=== PATIENT | male | born 1955 | race Hispanic/Latino ===

== ENCOUNTER 2018-10-14 17:52 | Inpatient (IN) | payer OTHER ==
[~2018-10-14] VITALS: Ht 162.6 cm; Wt 84.8 kg
[2018-10-14] MEDS ORDERED: DIATRIZOATE MEGL/DIATRIZOA SOD 30 ML BTL PO ONE (18:28)
[2018-10-14 18:47] LABS: BASOPHILS % 0.3 % (0.0-1.0); EOSINOPHILS # (AUTO) 0.1 (0.0-0.4); HEMATOCRIT 40.4 % (38.2-49.6); HEMOGLOBIN 13.7 g/dL (14.0-18.0); LYMPHOCYTES # (AUTO) 1.8 (1.0-3.2); MEAN CORPUSCULAR HGB CONC 33.9 g/dL (31-35); MEAN CORPUSCULAR VOLUME 85.6 fL (81-99); MONOCYTES # (AUTO) 0.9 (0.2-0.8); MONOCYTES % 7.5 % (4.4-11.3); NEUTROPHILS # (AUTO) 9.2 (2.1-6.9); NEUTROPHILS % 75.8 % (38.7-80.0); PLATELET COUNT 376 x10e3/uL (140-360); RED BLOOD COUNT 4.72 x10e6/uL (4.3-5.7); RED CELL DISTRIBUTION WIDTH 12.8 % (11.7-14.4)
[2018-10-14 19:10] LABS: ALBUMIN 3.2 g/dL (3.5-5.0); ALBUMIN/GLOBULIN RATIO 0.6 (0.8-2.0); ANION GAP 16.5 mmol/L (8-16); CALCIUM 9.5 mg/dL (8.4-10.2); CREATININE, SERUM 1.32 mg/dL (0.72-1.25); POTASSIUM 3.5 mmol/L (3.5-5.1)
[2018-10-14] MEDS ORDERED: SODIUM CHLORIDE 0.9% 500ML 500 ML IV ONE (19:30)
--- NOTE | 2018-10-14 21:49 | Diagnostic Imaging Report ---
EXAM: CT Abdomen and Pelvis WITH contrast INDICATION: ABD PAIN NO VOIDING/CONSTIPATION; history of fistula and abdominal surgery COMPARISON: None. TECHNIQUE: Abdomen and pelvis were scanned utilizing a multidetector helical scanner from the lung base to the pubic symphysis after administration of IV contrast. Coronal and sagittal reformations were obtained. Routine protocol was performed. Scan was performed when during portal venous phase. IV CONTRAST: 100 mL of Isovue 370 ORAL CONTRAST: Gastroview COMPLICATIONS: None RADIATION DOSE: Total DLP: 603 mGy*cm Estimated effective dose: (DLP x 0.015 x size factor) mSv CTDIvol has been reviewed. It is below the limits set by the Radiation Protocol Committee (RPC). Dose modulation, iterative reconstruction, and/or weight based adjustment of the mA/kV was utilized to reduce the radiation dose to as low as reasonably achievable. FINDINGS: LINES and TUBES: None. LOWER THORAX: Ground glass opacity in the basal medial segment of the right lower lobe, and partially visualized graft less opacity in the posterior aspect of the lingula. HEPATOBILIARY: A few subcentimeter hypodensities in the left hepatic lobe. No focal hepatic lesions. No biliary ductal dilation. GALLBLADDER: No radio-opaque stones or sludge. No wall thickening. SPLEEN: No splenomegaly. PANCREAS: No focal masses or ductal dilatation. ADRENALS: No adrenal nodules KIDNEYS/URETERS: Kidneys enhance symmetrically. No hydronephrosis. There are scattered too small to characterize hypodensites, likely benign. No stones. GI TRACT: A 7.1 x 6.3 x 7.5 cm (SI x AP X ML) heterogeneous mixed cystic and solid mass in the lower rectum below the level of the peritoneal reflection near the superior margin of the anus. Along the superior portion of this lesion there are a few cysts or loculations which enhance peripherally, largest on the left measures 4.2 cm, largest on the right measures 3.5 cm. Moderate colonic stool burden Appendix is normal. PELVIC ORGANS/BLADDER: Unremarkable. LYMPH NODES: Slightly prominent bilateral pelvic sidewall lymph nodes measure less than 1 cm.. VESSELS: Unremarkable. PERITONEUM / RETROPERITONEUM: A 1.7 cm dense irregular calcification in the left mid abdominal mesentery without adjacent mesenteric fat stranding or evidence of mesenteric retraction or surrounding adenopathy. BONES: Unremarkable. SOFT TISSUES: Unremarkable. IMPRESSION: 1. A 7.5 cm lower rectal mass highly suspicious for malignancy. A few cystic lesions/loculations along the superior aspect are likely cystic malignant components, although superimposed infected loculation is possible. No adenopathy or gross evidence of perforation. This mass partially obstructs the distal rectal lumen and there is moderate colonic stool burden. 2. Right lower lobe and lingular pneumonia. 3. A few subcentimeter hypodensities in the left hepatic lobe are likely benign however given the rectal mass, metastasis are an unlikely consideration. 4. A 1.7 cm dense irregular left mid mesenteric calcification is likely sequela of prior infection/trauma, although given the rectal mass, a mesenteric metastatic deposit is a less likely consideration. Signed by: Patrice Colon DO on 10/14/2018 9:46 PM
[2018-10-14] MEDS ORDERED: SODIUM CHLORIDE 0.9% 50ML 50 ML ONE (22:06)
[2018-10-14] MEDS ORDERED: IOPAMIDOL 370 MG/ML 200 ML INFUS..BTL INJ ONE (22:07)
[2018-10-14 22:26] LABS: BILIRUBIN,URINE NEGATIVE (NEGATIVE); CLARITY,URINE CLEAR (CLEAR); COLOR,URINE YELLOW (YELLOW); KETONES,URINE NEGATIVE (NEGATIVE); LEUKOCYTE ESTERASE ,URINE NEGATIVE (NEGATIVE); NITRITE,URINE NEGATIVE (NEGATIVE); PROTEIN,URINE DIPSTICK NEGATIVE (NEGATIVE); URINE UROBILINOGEN 2 mg/dL (0.2 - 1)
[2018-10-14 22:47] LABS: BACTERIA,URINE FEW /HPF; EPITHELIAL CELLS,URINE MANY /LPF; WBC,URINE (MAN) 0-5 /HPF (0-5)
[2018-10-15] VITALS (11 sets, daily range): BP systolic 131–167; BP diastolic 69–88
[2018-10-15] MEDS ORDERED: no homemeds (00:16)
[2018-10-15] MEDS ORDERED: AZITHROMYCIN 500MG/NS 250 ML 250 ML IV SCH (00:45)
--- OUTSIDE RECORDS SUMMARY | 2018-10-15 00:49 | XMS REPORT ---
Author Author [facility] Address Unknown Phone Unavailable Care Team Providers Care Assistant Credit Manager Name Role Phone YASHIRA NEWSOME Unavailable Unavailable Problems This patient has no known problems. Allergies, Adverse Reactions, Alerts This patient has no known allergies or adverse reactions. Medications This patient has no known medications. Results Test Description Test Time Test Comments Text Results Atomic Results Result Comments CT ABDOMEN/PELVIS W 2018-10-14 21:27:[address] [address] Patient Name: KEYUR GHOSH MR #: [id number] : 1955 Age/Sex: 63/M Req #: [id number] Adm Physician: Ordered by: MERCEDEZ CASTAÑEDA, YASHIRA CASTAÑEDA Report #: [id number] Location: ER Room/Bed: Procedure: [id number] CT/CT ABDOMEN/PELVIS W Exam Date: 10/14/18 Exam Time: 2037 REPORT STATUS: Signed EXAM: CT Abdomen and Pelvis WITH contrast INDICAT ION: ABD PAIN NO VOIDING/CONSTIPATION; history of fistula and abdominal surgery COMPARISON: None. TECHNIQUE: Abdomen and pelvis were scanned utilizing a multidetector helical scanner from the lung base to the pubic symphysis after administration of IV contrast. Coronal and sagittal reformations were obtained. Routine protocol was performed. Scan was performed when during portal venous phase. IV CONTRAST: 100 mL of Isovue 370 ORAL CONTRAST: Gastroview COMPLICATIONS: None RADIATION DOSE: Total DLP: 603 mGy*cm Estimated effective dose: ( DLP x 0.015 x size factor) mSv CTDIvol has been reviewed. It is below the limits set by the Radiation Protocol Committee (RPC). Dose modulation, iterative reconstruction, and/or weight based adjustment of the mA/kV was utilized to reduce the radiation dose to as low as reasonably achievable. FINDINGS: LINES and TUBES: None. LOWER THORAX: Ground glass opacity in the basal medial segment of the right lower lobe, and partially visualized graft less opacity in the posterior aspect of the lingula. HEPATOBILIARY: A few subcentimeter hypodensities in the left hepatic lobe. No focal hepatic lesions. No biliary ductal dilation. GALLBLADDER: No radio-opaque stones or sludge. No wall thickening. SPLEEN: No splenomegaly. PANCREAS: No focal masses or ductal dilatation. ADRENALS: No adrenal nodules KIDNEYS/URETERS: Kidneys enhance symmetrically. No hydronephrosis. There are scattered too small to characterize hypodensites, likely benign. No stones. GI TRACT: A 7.1 x 6.3 x 7.5 cm (SI x AP X ML) heterogeneous mixed cystic and solid mass in the lower rectum below the level of the peritoneal reflection near the superior margin of the anus. Along the superior portion of this lesion there are a few cysts or loculations which enhance peripherally, largest on the left measures 4.2 cm, largest on the right measures 3.5 cm. Moderate colonic stool burden Appendix is normal. PELVIC ORGANS/BLADDER: Unremarkable. LYMPH NODES: Slightly prominent bilateral pelvic sidewall lymph nodes measure less than 1 cm.. VESSELS: Unremarkable. PERITONEUM / RETROPERITONEUM: A 1.7 cm dense irregular calcification in the left mid abdominal mesentery without adjacent mesenteric fat stranding or evidence of mesenteric retraction or surrounding adenopathy. BONES: Unremarkable. SOFT TISSUES: Unremarkable. IMPRESSION: 1. A 7.5 cm lower rectal mass highly suspicious for malignancy. A few cystic lesions/loculations along the superior aspect are likely cystic malignant components, although superimposed infected loculation is possible. No adenopathy or gross evidence of pe rforation. This mass partially obstructs the distal rectal lumen and there is moderate colonic stool burden. 2. Right lower lobe and lingular pneumonia. 3. A few subcentimeter hypodensities in the left hepatic lobe are likely benign however given the rectal mass, metastasis are an unlikely consideration. 4. A 1.7 cm dense irregular left mid mesenteric calcification is likely sequela of prior infection/trauma, although given the rectal mass, a mesenteric metastatic deposit is a less likely consideration. Signed by: Patrice Colon DO on 10/14/2018 9:46 PM Dictated By: PATRICE COLON DO 46 Transcribed By: SURI on 10/14/182145 COPY TO: YASHIRA NEWSOME
[2018-10-15] MEDS: CEFTRIAXONE SOD 1 GM/NS 50 ML 50 ML IV SCH (00:57)
--- NOTE | 2018-10-15 01:08 | NUR ---
PT ARRIVED ON THE UNIT VIA STRETCHER AT 0108. PT IS A&OX3. RESPIRATION IS EVEN AND UNLABORED, NO DISTRESS NOTED. PT AND HIS ORIENTED TO THE ROOM, BED IN THE LOWEST POSITION, LOCKED, AND CALL LIGHT WITHIN REACH. ADMISSION AND HEAD TO TOE ASSESSMENT COMPLETE. WILL CONTINUE TO MONITOR.
--- NOTE | 2018-10-15 06:56 | NUR ---
RECEIVED PATIENT RESTING IN BED. NO ACUTE DISTRESS NOTED. FAMILY AT BEDSIDE. CALL LIGHT WITHIN REACH. BED IN THE LOWEST POSITION.
--- NOTE | 2018-10-15 10:55 | NUR ---
CALLED DR. SAENZ TO NOTIFY HIM THAT PATIENT IS HAVING TEMPERATURE OF 101.3, NO ANSWER, LVM TO CALL BACK FOR ORDERS.
[2018-10-15] MEDS ORDERED: POLYETHYLENE GLYCOL 3350 17 GM PACK PO PRN (11:00)
[2018-10-15] MEDS ORDERED: ONDANSETRON HCL INJ 2MG/ML 2ML 2 MG/ML VIAL IV PRN (11:00)
[2018-10-15] MEDS: HYDRALAZINE HCL 20 MG/ML VIAL IV PRN (11:20)
[2018-10-15] MEDS: ACETAMINOPHEN 325 MG TAB PO PRN (11:20)
[2018-10-15] MEDS: ALBUTEROL/IPRATROPIUM 3 ML NEB NEB SCH ×4 (11:24→23:40)
--- NOTE | 2018-10-15 11:36 | NUR ---
Nutrition Screen Note RD Recommendation for Physician: Continue diet as ordered Plan of Care: RD following, monitoring for tolerance and adequacy Nutrition reason for involvement: Nutrition Risk Trigger - MST Primary Diagnose(s):pneumonia, renal mass PMH: No H&P available at time of visit Ht: 64in Wt:187lb BMI:32.1 kg/m2 IBW:130lb RD Assessment: (10/15/2018) Chart reviewed. Labs and meds reviewed. Initial encounter with patient. Pt was eating well GENERAL ACTIVITIES THERAPIST. Pt denies any difficulty chewing or swallowing. No N,V,D. Pt can feed himself. No wt changes Current Diet:Cardiac Malnutrition Evaluation 10/15/18() The patient does not meet criteria for a specified degree of malnutrition at this time. Will re-evaluate at follow-up as appropriate. Diet Education Needs Assessment: Diet education not indicated. Nutrition Care Level: low Signed: Davidson Moreno RD, LD, [facility]
--- NOTE | 2018-10-15 13:36 | NUR ---
GAVE PACKET OF INFORMATION WITH COMMUNITY RESOURCES FOR ASSISTANCE WITH LOW TO NO INCOME TO PATIENT. RESOURCES THAT PATIENT MAY BE ABLE TO FOLLOW UP UPON DISCHARGE. PT EDUCATED ON EACH RESOURCE AND UNDERSTANDING HOW TO FOLLOW UP TO SEE IF QUALIFIED FOR EACH RESOURCE.
[2018-10-15] MEDS: GUAIFENESIN 600MG/DEXTROMETHORPHAN 30MG TABSR PO SCH (16:04)
[2018-10-15] MEDS: FAMOTIDINE 20 MG TAB PO SCH (16:04)
[2018-10-15] MEDS: DOCUSATE SODIUM 100 MG CAP PO SCH (16:04)
--- NOTE | 2018-10-15 19:11 | NUR ---
REPORT GIVEN TO ONCOMING NURSE, WALKING ROUNDS DONE. PATIENT IS RESTING IN BED. NO ACUTE DISTRESS NOTED. DENIES PAIN OR DISCOMFORT. CALL LIGHT WITHIN REACH. BED IN THE LOWEST POSITION.
--- NOTE | 2018-10-15 19:32 | NUR ---
PT IS RESTING IN BED WITH FAMILY AT BEDSIDE. RESPIRATION IS EVEN AND UNLABORED, NO DISTRESS NOTED. BED IN THE LOWEST POSITION, LOCKED, AND CALL LIGHT WITHIN REACH. WILL CONTINUE TO MONITOR.
--- NOTE | 2018-10-15 20:05 | Consultation ---
DATE OF CONSULTATION: Pulmonary Critical Care Consultation CHIEF COMPLAINT: Abdominal pain. HISTORY OF PRESENT ILLNESS: The patient is a 63-year-old man. He came from the [facility] after presenting with abdominal pain and rectal mass. Abdominal CT also showed possible basal infiltrate in the lung. The patient denies any cough. He is not having any phlegm production. He denies chest pain or fevers. PAST MEDICAL HISTORY: The patient has no prior history of respiratory problems. No cardiac problems. SOCIAL HISTORY: The patient is not an active smoker or drinker. ALLERGIES: NO KNOWN DRUG ALLERGIES. FAMILY HISTORY: Family history is noncontributory. REVIEW OF SYSTEMS: The patient is afebrile. There is no headache. He is not having any cough or difficulty breathing. He has no chest pain. He does have some abdominal pain. He also has some nausea, but no vomiting. PHYSICAL EXAMINATION: VITAL SIGNS: The patient is afebrile. The blood pressure is 158/76 and the T-max is 99.9. Saturation is 96%. HEENT: Shows no facial swelling or erythema. The oropharynx is normal. LYMPHATIC: Shows no submandibular, cervical, or supraclavicular adenopathy. CARDIAC: Reveals regular rate and rhythm with normal S1 and S2. There are no murmurs or rubs. LUNGS: Auscultation of lungs reveals clear breath sounds bilaterally. There is no wheezing. ABDOMEN: Distended. There is some mild lower abdominal tenderness. There is no rebound or guarding. EXTREMITIES: There is no leg edema or calf tenderness. LABORATORY DATA: The sodium is 139 and BUN to creatinine ratio is 15 to 1.32. Other electrolytes are within normal limits. White blood cell count is 12.2 and hemoglobin is 13.7, platelet count is 376. RADIOGRAPHIC DATA: CT scan of the abdomen and pelvis shows a 7.5 cm low rectal mass. There is also a right lower lobe and lingular infiltrate and possibly some metastases in the liver. IMPRESSION: 1. Rectal mass with some colonic obstruction. 2. Community-acquired pneumonia. 3. Acute kidney injury. 4. Hypertension. PLAN: 1. Continue current antibiotics. 2. Oxygen as needed. 3. GI consultation and surgical consultation for rectal mass. Stiven Anand MD [facility] /[id number]
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
[2018-10-15] MEDS ORDERED: SODIUM CHLORIDE 0.9% 250ML 250 ML ONE (23:55)
[2018-10-16] VITALS (9 sets, daily range): BP systolic 133–177; BP diastolic 73–88
[2018-10-16] MEDS: CEFTRIAXONE SOD 1 GM/NS 50 ML 50 ML IV SCH ×2 (00:01→23:39)
[2018-10-16] MEDS: ACETAMINOPHEN 325 MG TAB PO PRN (00:01)
[2018-10-16] MEDS: ALBUTEROL/IPRATROPIUM 3 ML NEB NEB SCH ×6 (03:00→23:15)
[2018-10-16 04:55] LABS: BASOPHILS % 0.4 % (0.0-1.0); EOSINOPHILS # (AUTO) 0.1 (0.0-0.4); EOSINOPHILS % 1.4 % (0.0-6.0); HEMATOCRIT 36.4 % (38.2-49.6); HEMOGLOBIN 12.3 g/dL (14.0-18.0); LYMPHOCYTES # (AUTO) 2.9 (1.0-3.2); LYMPHOCYTES % 29.4 % (18.0-39.1); MEAN CORPUSCULAR HEMOGLOBIN 28.9 pg (28-32); MEAN CORPUSCULAR HGB CONC 33.8 g/dL (31-35); MEAN CORPUSCULAR VOLUME 85.6 fL (81-99); MONOCYTES % 9.9 % (4.4-11.3); NEUTROPHILS # (AUTO) 5.8 (2.1-6.9); NEUTROPHILS % 58.5 % (38.7-80.0); PLATELET COUNT 352 x10e3/uL (140-360); RED BLOOD COUNT 4.25 x10e6/uL (4.3-5.7); RED CELL DISTRIBUTION WIDTH 12.9 % (11.7-14.4)
[2018-10-16 05:02] LABS: ALANINE AMINOTRANSFERASE 15 IU/L (0-55); ALBUMIN 2.8 g/dL (3.5-5.0); ALBUMIN/GLOBULIN RATIO 0.6 (0.8-2.0); ALKALINE PHOSPHATASE 87 IU/L (40-150); ANION GAP 14.3 mmol/L (8-16); BLOOD UREA NITROGEN 9 mg/dL (7-26); BUN/CREATININE RATIO 10 (6-25); CALCIUM 9.1 mg/dL (8.4-10.2); CARBON DIOXIDE 24 mmol/L (22-29); CHLORIDE 103 mmol/L (98-107); EST GLOMERULAR FILTRATION RATE > 60 ML/MIN (60-); GLUCOSE 101 mg/dL (74-118); PHOSPHORUS 3.5 MG/DL (2.3-4.7); POTASSIUM 3.3 mmol/L (3.5-5.1); SODIUM 138 mmol/L (136-145)
--- NOTE | 2018-10-16 06:52 | NUR ---
RECEIVED PATIENT RESTING IN BED. NO S/S OF DISTRESS NOTED. PAIN AT A TOLERABLE LEVEL AT THIS TIME. CALL LIGHT WITHIN REACH. BED IN THE LOWEST POSITION.
[2018-10-16] MEDS: DOCUSATE SODIUM 100 MG CAP PO SCH ×2 (08:21→17:08)
[2018-10-16] MEDS: FAMOTIDINE 20 MG TAB PO SCH ×2 (08:21→17:08)
[2018-10-16] MEDS: HYDRALAZINE HCL 20 MG/ML VIAL IV PRN (08:21)
[2018-10-16] MEDS: GUAIFENESIN 600MG/DEXTROMETHORPHAN 30MG TABSR PO SCH ×2 (08:21→17:08)
[2018-10-16] MEDS ORDERED: POTASSIUM CHLORIDE 20 MEQ TAB CR PO ONE (12:30)
[2018-10-16] MEDS: AMLODIPINE BESYLATE 10 MG TAB PO SCH (12:37)
--- NOTE | 2018-10-16 19:08 | NUR ---
REPORT GIVEN TO ONCOMING NURSE, WALKING ROUNDS DONE. PATIENT IS IN STABLE CONDITION. DENIES PAIN OR DISCOMFORT. FAMILY AT BEDSIDE. CALL LIGHT WITHIN REACH. BED IN THE LOWEST POSITION.
--- NOTE | 2018-10-16 19:21 | NUR ---
PT IS RESTING IN BED WITH AND KIDS AT BEDSIDE. RESPIRATION IS EVEN AND UNLABORED, NO DISTRESS NOTED. BED IN THE LOWEST POSITION, LOCKED, AND CALL LIGHT WITHIN REACH. WILL CONTINUE TO MONITOR.
[2018-10-17] VITALS (7 sets, daily range): BP systolic 124–156; BP diastolic 62–83
[2018-10-17] MEDS ORDERED: CITRATE OF MAGNESIA 300ML BOTTLE PO ONE ×3 (02:00→11:30)
--- NOTE | 2018-10-17 02:12 | NUR ---
PER DR LONG CITRATE OF MAGNESIA BOTTLE X2. ADMINISTER FIRST BOTTLE TO PT. WILL CONTINUE TO MONITOR.
[2018-10-17] MEDS: ALBUTEROL/IPRATROPIUM 3 ML NEB NEB SCH ×6 (03:00→23:20)
[2018-10-17] MEDS ORDERED: BISACODYL 5 MG TAB EC PO ONE ×4 (03:15→23:42)
--- NOTE | 2018-10-17 03:42 | NUR ---
PER DR Maddy LONG DULCOLAX 20MG PO NOW AND ANOTHER 20MG IN AN HOUR. WILL CONTINUE TO MONITOR.
[2018-10-17 03:59] LABS: BASOPHILS # (AUTO) 0.1 (0.0-0.1); BASOPHILS % 0.6 % (0.0-1.0); EOSINOPHILS # (AUTO) 0.4 (0.0-0.4); EOSINOPHILS % 3.6 % (0.0-6.0); HEMATOCRIT 39.1 % (38.2-49.6); HEMOGLOBIN 13.4 g/dL (14.0-18.0); LYMPHOCYTES # (AUTO) 2.5 (1.0-3.2); LYMPHOCYTES % 24.9 % (18.0-39.1); MEAN CORPUSCULAR HEMOGLOBIN 29.1 pg (28-32); MEAN CORPUSCULAR HGB CONC 34.3 g/dL (31-35); MEAN CORPUSCULAR VOLUME 84.8 fL (81-99); MONOCYTES # (AUTO) 0.8 (0.2-0.8); MONOCYTES % 8.4 % (4.4-11.3); NEUTROPHILS # (AUTO) 6.2 (2.1-6.9); PLATELET COUNT 419 x10e3/uL (140-360); RED BLOOD COUNT 4.61 x10e6/uL (4.3-5.7); RED CELL DISTRIBUTION WIDTH 12.7 % (11.7-14.4)
[2018-10-17 04:21] LABS: ANION GAP 15.4 mmol/L (8-16); BLOOD UREA NITROGEN 9 mg/dL (7-26); BUN/CREATININE RATIO 10 (6-25); CALCIUM 9.7 mg/dL (8.4-10.2); CARBON DIOXIDE 21 mmol/L (22-29); CHLORIDE 104 mmol/L (98-107); CREATININE, SERUM 0.87 mg/dL (0.72-1.25); EST GLOMERULAR FILTRATION RATE > 60 ML/MIN (60-); GLUCOSE 147 mg/dL (74-118); POTASSIUM 3.4 mmol/L (3.5-5.1); SODIUM 137 mmol/L (136-145)
--- NOTE | 2018-10-17 07:15 | NUR ---
The pt. is up and in the bathroom at bedside rounding. He reports continued stool in the bowel movements. The pt.'s potassium is low at 3.3 and the PA is here and ordered potassium replacement.
[2018-10-17] MEDS: FAMOTIDINE 20 MG TAB PO SCH ×2 (07:30→17:27)
[2018-10-17] MEDS ORDERED: KCL 20MEQ/.9 SOD CHL 1,000 ML IV ONE (08:00)
[2018-10-17] MEDS ORDERED: POTASSIUM CHLORIDE 20MEQ/100ML 100 ML IV ONE (08:00)
[2018-10-17] MEDS: DOCUSATE SODIUM 100 MG CAP PO SCH ×2 (09:31→17:27)
[2018-10-17] MEDS: GUAIFENESIN 600MG/DEXTROMETHORPHAN 30MG TABSR PO SCH ×2 (09:31→17:27)
[2018-10-17] MEDS: AMLODIPINE BESYLATE 10 MG TAB PO SCH (09:31)
--- NOTE | 2018-10-17 11:30 | NUR ---
Dr. Kim Ramsey called to give orders for magnesium citrate and n p o.
--- NOTE | 2018-10-17 15:08 | NUR ---
The is still having particulate matter from the bowel. The dr. will do colonoscopy im the morning. The pt. will have clear liquids until breakfast and then n p o.
--- NOTE | 2018-10-17 18:22 | NUR ---
The pt. has been consented for colonoscopy scheduled for 10/18/18.
--- NOTE | 2018-10-17 22:56 | NUR ---
received orders from sean johnson to give dulcolax 5mg po total of 20 mg now and 20mg every 30 minutes times three. orders carried out. patient received all pills and no stool noted. stool remain blackish liquid with some particles.
[2018-10-18] VITALS (8 sets, daily range): BP systolic 127–162; BP diastolic 70–87
[2018-10-18] MEDS ORDERED: BISACODYL 5 MG TAB EC PO ONE ×2 (00:15→05:42)
[2018-10-18] MEDS: CEFTRIAXONE SOD 1 GM/NS 50 ML 50 ML IV SCH (00:45)
--- NOTE | 2018-10-18 02:00 | NUR ---
dr. sean johnson present informed patient received all pills and no results from that, rounds made, iv infusing, encourage patient to increase his water intake per orders. will continue to monitor. call light remain in reach.
[2018-10-18] MEDS: ALBUTEROL/IPRATROPIUM 3 ML NEB NEB SCH ×6 (02:55→23:00)
[2018-10-18 03:56] LABS: BASOPHILS # (AUTO) 0.1 (0.0-0.1); BASOPHILS % 0.5 % (0.0-1.0); EOSINOPHILS # (AUTO) 0.3 (0.0-0.4); EOSINOPHILS % 2.7 % (0.0-6.0); HEMATOCRIT 38.8 % (38.2-49.6); HEMOGLOBIN 13.2 g/dL (14.0-18.0); LYMPHOCYTES # (AUTO) 2.3 (1.0-3.2); LYMPHOCYTES % 24.8 % (18.0-39.1); MEAN CORPUSCULAR HEMOGLOBIN 28.9 pg (28-32); MEAN CORPUSCULAR VOLUME 85.1 fL (81-99); MONOCYTES # (AUTO) 0.6 (0.2-0.8); MONOCYTES % 6.3 % (4.4-11.3); NEUTROPHILS # (AUTO) 6.1 (2.1-6.9); NEUTROPHILS % 65.1 % (38.7-80.0); PLATELET COUNT 455 x10e3/uL (140-360); RED BLOOD COUNT 4.56 x10e6/uL (4.3-5.7); RED CELL DISTRIBUTION WIDTH 12.9 % (11.7-14.4)
[2018-10-18 04:15] LABS: ANION GAP 14.4 mmol/L (8-16); BLOOD UREA NITROGEN 14 mg/dL (7-26); BUN/CREATININE RATIO 15 (6-25); CALCIUM 9.4 mg/dL (8.4-10.2); CARBON DIOXIDE 22 mmol/L (22-29); CHLORIDE 103 mmol/L (98-107); CREATININE, SERUM 0.95 mg/dL (0.72-1.25); EST GLOMERULAR FILTRATION RATE > 60 ML/MIN (60-); GLUCOSE 141 mg/dL (74-118); MAGNESIUM 2.4 MG/DL (1.3-2.1); POTASSIUM 3.4 mmol/L (3.5-5.1); SODIUM 136 mmol/L (136-145)
[2018-10-18] MEDS ORDERED: POTASSIUM CHLORIDE 20MEQ/100ML 100 ML IV ONE (04:45)
--- NOTE | 2018-10-18 07:00 | NUR ---
rounds done, patient continue resting in bed, iv infusing, will continue to monitor. call light in reach.
--- NOTE | 2018-10-18 07:10 | NUR ---
The pt. was received from the off-going nurse and reports that the last stool was clearer in color. He denies pin or discomfortat this time. Rachid Addendum: 10/18/18 at 0752 by Milka Hanley RN kamran lainez is in process.
[2018-10-18] MEDS: FAMOTIDINE 20 MG TAB PO SCH ×2 (08:13→16:06)
[2018-10-18] MEDS: GUAIFENESIN 600MG/DEXTROMETHORPHAN 30MG TABSR PO SCH ×2 (08:13→18:01)
[2018-10-18] MEDS: DOCUSATE SODIUM 100 MG CAP PO SCH ×2 (08:13→18:01)
[2018-10-18] MEDS: AMLODIPINE BESYLATE 10 MG TAB PO SCH (08:14)
[2018-10-18] MEDS ORDERED: GADOBENATE DIMEGLUMINE 1 ML IV ONE (12:52)
--- NOTE | 2018-10-18 12:56 | NUR ---
To OR for procedure via w/c in stable condition.
--- NOTE | 2018-10-18 15:39 | NUR ---
PT TO HAVE COLONOSCOPY AND BIOPSY CONTINUE CARE
--- NOTE | 2018-10-18 16:07 | NUR ---
The pt. returned to the room from surgery s/p colonoscopy. He is awake, alert but still somewhat unsteady. He was advised to use the urinal until he is less unsteady. The family is in attendance. The v.s are within normal limits (see graphic). The pt. is to maintain a clear liquid diet until further notice and the pt. is aware.
[2018-10-18] MEDS ORDERED: FENTANYL CITRATE/PF 100MCG/2 ML INJ ONE (18:20)
[2018-10-18] MEDS ORDERED: MIDAZOLAM HCL 2 MG/2 ML VIAL ONE (18:20)
[2018-10-18] MEDS ORDERED: PHENYLEPHRINE HCL 1% 10 MG/ML VIAL ONE (18:29)
[2018-10-18] MEDS ORDERED: LIDOCAINE HCL 2% LOCAL INJ 5 ML SDV VIAL INJ ONE (18:29)
[2018-10-18] MEDS ORDERED: PROPOFOL IV EMULSION 10 MG/ML 20 ML VIAL ONE (18:29)
--- NOTE | 2018-10-18 19:10 | NUR ---
Completed bedside rounds with morning nurse. Pt alert to name. Lying in bed HOB 45 degrees. denies pain at this time. Skin warm to touch. Call weir within reach. Will continue to monitor.
[2018-10-19 00:20] VITALS: BP 143/71
[2018-10-19] MEDS: CEFTRIAXONE SOD 1 GM/NS 50 ML 50 ML IV SCH (00:45)
[2018-10-19] MEDS: ALBUTEROL/IPRATROPIUM 3 ML NEB NEB SCH ×4 (02:50→19:11)
--- NOTE | 2018-10-19 03:53 | Operative Report ---
DATE OF PROCEDURE: 10/18/2018 SURGEON: Vinod Ramsey MD PROCEDURE: Colonoscopy with polypectomy and biopsies. INDICATIONS FOR COLONOSCOPY: Rectal mass on CT scan. MEDICATIONS: The patient was done under MAC. Please see anesthesiologist's note. PROCEDURE IN DETAIL: With the patient in left lateral decubitus position, flexible fiberoptic Olympus colonoscope was inserted into the rectum and advanced all the way to the cecum. Mucosa overlying the cecum appeared to be within normal limits. One polyp was snared from the ascending colon. Two polyps were snared from the transverse colon. Three polyps were snared from the descending colon and two were snared from the sigmoid colon. A large rectal mass was noted extending approximately 6 cm from just above the dentate line. Biopsies were obtained and sent for both permanent as well as frozen section. The frozen section was positive for adenocarcinoma. The scope was then subsequently withdrawn. The patient tolerated the procedure well. IMPRESSION: 1. Ascending colon polyp x1, snared. 2. Transverse colon polyps x2, removed per snare electrocautery. 3. Descending colon polyps x3, removed per snare electrocautery. 4. Sigmoid colon polyps x2, removed per snare electrocautery. 5. Rectal mass approximately semicircumferential extending from just above the dentate line approximately 7 cm proximal into the rectum. Biopsies for frozen section were positive for adenocarcinoma. PLAN: Follow up histology. We will discuss with Dr. Branch. I repeat followup histology. We will discuss with Dr. Branch, the patient's general surgeon. Vinod Ramsey MD [facility] [place] /[id number] cc: Giles Avila MD
[2018-10-19 06:35] LABS: BASOPHILS % 0.3 % (0.0-1.0); EOSINOPHILS # (AUTO) 0.3 (0.0-0.4); EOSINOPHILS % 3.1 % (0.0-6.0); HEMATOCRIT 36.5 % (38.2-49.6); HEMOGLOBIN 12.1 g/dL (14.0-18.0); LYMPHOCYTES # (AUTO) 2.1 (1.0-3.2); LYMPHOCYTES % 23.6 % (18.0-39.1); MEAN CORPUSCULAR HEMOGLOBIN 28.7 pg (28-32); MEAN CORPUSCULAR HGB CONC 33.2 g/dL (31-35); MEAN CORPUSCULAR VOLUME 86.5 fL (81-99); MONOCYTES # (AUTO) 0.5 (0.2-0.8); MONOCYTES % 5.7 % (4.4-11.3); NEUTROPHILS # (AUTO) 5.9 (2.1-6.9); NEUTROPHILS % 66.7 % (38.7-80.0); PLATELET COUNT 430 x10e3/uL (140-360); RED BLOOD COUNT 4.22 x10e6/uL (4.3-5.7); RED CELL DISTRIBUTION WIDTH 12.9 % (11.7-14.4)
[2018-10-19 06:42] LABS: ANION GAP 14.6 mmol/L (8-16); BLOOD UREA NITROGEN 11 mg/dL (7-26); BUN/CREATININE RATIO 15 (6-25); CALCIUM 8.9 mg/dL (8.4-10.2); CARBON DIOXIDE 23 mmol/L (22-29); CHLORIDE 105 mmol/L (98-107); CREATININE, SERUM 0.75 mg/dL (0.72-1.25); EST GLOMERULAR FILTRATION RATE > 60 ML/MIN (60-); GLUCOSE 85 mg/dL (74-118); POTASSIUM 3.6 mmol/L (3.5-5.1); SODIUM 139 mmol/L (136-145)
--- NOTE | 2018-10-19 07:40 | NUR ---
PATIENT IN BED RESTING WITH NO S/S OF DISTRESS. DRESSING INTACT TO ABDOMINAL WOUND WITH SOME REDNESS AROUND. BED IN LOWER POSITION, CALL LIGHT AT REACH.
[2018-10-19 07:59] VITALS: BP 142/70
[2018-10-19] MEDS: FAMOTIDINE 20 MG TAB PO SCH ×2 (08:00→16:30)
[2018-10-19] MEDS ORDERED: CITRATE OF MAGNESIA 300ML BOTTLE PO NR ×2 (09:00→12:30)
[2018-10-19] MEDS: GUAIFENESIN 600MG/DEXTROMETHORPHAN 30MG TABSR PO SCH ×2 (09:09→17:45)
[2018-10-19] MEDS: DOCUSATE SODIUM 100 MG CAP PO SCH ×2 (09:09→17:45)
[2018-10-19] MEDS: AMLODIPINE BESYLATE 10 MG TAB PO SCH (09:09)
[2018-10-19] MEDS: D5.45%NS/KCL 20MEQ 1,000 ML IV SCH ×2 (11:00→20:34)
--- NOTE | 2018-10-19 11:50 | NUR ---
PATIENT AMBULATED TO THE RESTROOM AND BACK TO BED. IV FLUID INFUSING ORDERED. CALL LIGHT AT REACH.
[2018-10-19 12:11] VITALS: BP 144/70
[2018-10-19 15:09] VITALS: BP 170/82
--- NOTE | 2018-10-19 16:32 | NUR ---
PATIENT OUT OF BED TO CHAIR TALKING TO FAMILY MEMBER VISITING, NO COMPLAIN VOICED. CALL LIGHT AT REACH.
--- NOTE | 2018-10-19 19:30 | NUR ---
Completed bedside nursing report with morning nurse. Pt alert and orient to name. Lying in bed HOB 45 degrees. Denies pain at this time. Call weir within reach. Will continue to monitor.
[2018-10-19 20:00] VITALS: BP 135/74
[2018-10-19 21:00] VITALS: BP 135/74
[2018-10-20] VITALS: BP 150/76
[2018-10-20] MEDS: CEFTRIAXONE SOD 1 GM/NS 50 ML 50 ML IV SCH (00:27)
[2018-10-20] MEDS: ALBUTEROL/IPRATROPIUM 3 ML NEB NEB SCH ×6 (00:41→19:15)
[2018-10-20 03:05] LABS: BASOPHILS % 0.4 % (0.0-1.0); EOSINOPHILS # (AUTO) 0.4 (0.0-0.4); EOSINOPHILS % 3.9 % (0.0-6.0); HEMATOCRIT 35.5 % (38.2-49.6); HEMOGLOBIN 12.1 g/dL (14.0-18.0); LYMPHOCYTES # (AUTO) 2.6 (1.0-3.2); LYMPHOCYTES % 29.3 % (18.0-39.1); MEAN CORPUSCULAR HGB CONC 34.1 g/dL (31-35); MEAN CORPUSCULAR VOLUME 85.1 fL (81-99); MONOCYTES # (AUTO) 0.6 (0.2-0.8); MONOCYTES % 6.7 % (4.4-11.3); NEUTROPHILS # (AUTO) 5.3 (2.1-6.9); NEUTROPHILS % 59.3 % (38.7-80.0); PLATELET COUNT 407 x10e3/uL (140-360); RED BLOOD COUNT 4.17 x10e6/uL (4.3-5.7); RED CELL DISTRIBUTION WIDTH 12.7 % (11.7-14.4)
[2018-10-20 03:18] LABS: ANION GAP 12.7 mmol/L (8-16); BLOOD UREA NITROGEN 5 mg/dL (7-26); BUN/CREATININE RATIO 7 (6-25); CALCIUM 8.8 mg/dL (8.4-10.2); CARBON DIOXIDE 24 mmol/L (22-29); CHLORIDE 107 mmol/L (98-107); CREATININE, SERUM 0.74 mg/dL (0.72-1.25); EST GLOMERULAR FILTRATION RATE > 60 ML/MIN (60-); GLUCOSE 117 mg/dL (74-118); POTASSIUM 3.7 mmol/L (3.5-5.1); SODIUM 140 mmol/L (136-145)
[2018-10-20 04:00] VITALS: BP 134/76
[2018-10-20] MEDS: D5.45%NS/KCL 20MEQ 1,000 ML IV SCH (07:14)
--- NOTE | 2018-10-20 07:26 | NUR ---
PATIENT IN BED WITH HEAD OF BED ELEVATED WATCHING TV, NO COMPLAIN VOICED. REMAINS NPO FOR A PROCEDURE. DRESSING TO MID ABDOMEN DRY AND INTACT. IV FLUID INFUSING ORDERED. BED IN LOWER POSITION, CALL LIGHT AT REACH.
[2018-10-20 07:30] VITALS: BP 148/79
[2018-10-20] MEDS: FAMOTIDINE 20 MG TAB PO SCH ×2 (07:30→17:25)
[2018-10-20 07:46] VITALS: BP 148/79
[2018-10-20] MEDS: DOCUSATE SODIUM 100 MG CAP PO SCH ×2 (09:00→17:25)
[2018-10-20] MEDS: AMLODIPINE BESYLATE 10 MG TAB PO SCH (09:00)
[2018-10-20] MEDS: GUAIFENESIN 600MG/DEXTROMETHORPHAN 30MG TABSR PO SCH ×2 (09:00→17:25)
--- NOTE | 2018-10-20 09:37 | Diagnostic Imaging Report ---
EXAMINATION: MRI of the pelvis with and without contrast. TECHNIQUE: Axial T1 and T2, sagittal T2 with and without fat-sat, coronal T1 MR images of the pelvis were performed from below the inferior poles of the kidneys to the lesser trochanters before and after the intravenous administration of 17 cc of gadolinium. Axial T1 and coronal T1 postcontrast images were performed. COMPARISON: CT abdomen and pelvis 10/14/2018 CLINICAL HISTORY: Rectal mass. FINDINGS: BLADDER: Bladder is unremarkable. No focal lesions or wall thickening. PROSTATE: Unremarkable. No focal lesions. GI TRACT: Approximately 6.2 x 3.4 x 3.2 cm crescentic shaped lobulated T1 hypointense, T2 hyperintense enhancing solid mass in the lower rectum below the level of the peritoneal reflection (series 4, image 29 and series 7, image 34), extending from the 5:00 to the 12:00 position. 2 peripherally enhancing T1 hypointense, T2 hyperintense cystic-appearing components are noted in the superior aspect of this lesion, measuring approximately 4.2 x 2.9 x 3.4 cm at approximately the 3:00 to 5:00 position on the left (series 4, image 24) and 6.2 x 3.6 x 4.4 cm in the 9:00 to 11:00 position on the left, image 23). The right-sided cystic lesion extends to the right mesorectal fascial border and abuts the right pelvic sidewall. Questionable extension of the lower portion of the tumor outside the mesorectal fascia at the 9:00 position (series 4, image 28), which is difficult to assess as this is not a dedicated rectal MRI protocol. The anterior border of the solid mass abuts the posterior aspect of the prostate, without definite evidence of invasion. Rest of the bowel shows no dilation or obstruction. No other focal lesions are identified. PERITONEUM/RETROPERITONEUM: No free fluid. LYMPH NODES: 0.4 cm no enlarged left mesorectal node (series 4, image 24). No enlarged mesorectal, pelvic or inguinal lymph nodes BONES: No abnormal bone marrow signal. SOFT TISSUES: Soft tissues are unremarkable. IMPRESSION: 1. Large lower rectal solid mass with cystic components consistent with rectal neoplasm likely adenocarcinoma. 2 peripherally enhancing cystic components likely represent cystic or less likely necrotic portions of the tumor. Associated abscesses are less likely considered. No adenopathy. 2. There is questionable extension of the lower portion of the tumor outside the mesorectal fascia at the 9:00 position, and the right-sided cystic component extends to the border of the right mesorectal fascia and abuts the pelvic sidewall, which suggests at least a T3 stage tumor, however, assessment is limited as this is not a dedicated rectal MRI protocol. Signed by: Dr. Krzysztof Valderrama M.D. on 10/20/2018 9:34 AM
[2018-10-20 11:11] VITALS: BP 152/79
--- NOTE | 2018-10-20 11:29 | NUR ---
MD IN TO TALK TO PATIENT ABOUT THE PROCEDURE, NO CONCERN VOICED. CONSENT SIGN, REMAINS NPO. IN BED WITH CALL LIGHT.
--- NOTE | 2018-10-20 13:15 | NUR ---
PATIENT OFF UNIT TO OR.
--- NOTE | 2018-10-20 15:10 | NUR ---
PATIENT BACK TO UNIT, SURGERY CANCELLED.
[2018-10-20 15:19] VITALS: BP 153/78
--- NOTE | 2018-10-20 15:23 | NUR ---
CASE MANAGEMENT CALLED BY DR REGAN STATING HE IS NOT DOING SURGERY ON THIS PT HAS DISCUSSED WITH PT AND PT AGREEABLE PLAN IS TO DC AND F/U AT [facility] OR MD [facility] FOR CHEMO/RADIATION FOLLOWED BY SURGERY APPLICATION CHEMIST HERE TO EXPLAIN PROCESS TO PT AND GIVE PACKET DR REGAN IS CALLING TO EXPLAIN TO DR SAENZ PLAN POSSIBLE DC THIS EVENING
--- NOTE | 2018-10-20 16:02 | NUR ---
SPOKE EXTENSIVELY WITH THE PATIENT AND FAMILY ABOUT THE IMPORTANCE OF GETTING THE RIGHT TEAM FROM BEGINNING TO CARE FOR A CANCER DX. THEY WANT TO DISCHARGE FROM HERE AND MAKE APPOINTMENT WITH [facility] FOR FOLLOW UP, GAVE OUTPATIENT CLINIC NUMBER AND WEBSITE PRINTOUT, ALSO SPOKE WITH THEM ABOUT A SECOND OPTION OF [facility] AND THE[facility] ONCOLOGY DEPARTMENT. SPOKE WITH FAMILY ABOUT THIS IS A BRAND NEW DIAGNOSIS AND IT IS NOT EMERGENT TO WHERE THEY ARE ABLE TO GO HOME AND DISCUSS A FAMILY AND MAKE THEIR DECISION ON WHERE THEY WANT TREATMENT. FAMILY AGAIN EMPHASIZED THEY WOULD RATHER NOT GET TREATMENT HERE AND GO TO [facility]. THEY WILL RETURN HOME AND DISCUSS FURTHER AND MAKE AN OUTPATIENT APPOINTMENT FOR FOLLOW UP FOR TREATMENT. ADVISED IF THEY HAVE ANY OTHER QUESTIONS TO CALL ME AND I WILL BE HAPPY TO ASSIST IN ANY WAY.
--- NOTE | 2018-10-20 20:01 | NUR ---
DR SAENZ'S PHYSICAL METALLURGIST SAW THE PATIENT, HE HAS A DISCHARGE ORDER. DISCHARGED INSTRUCTIONS WITH FOLLOW UP GIVEN, HE VERBALIZED UNDERSTANDING. HE WAS TOLD TO FOLLOW UP WITH [facility] AND EDDY DISCUSSED. IV REMOVED WITH TIP INTACT, WET TO DRY WOUND CARE PROVIDED TO THE ABDOMINAL WOUND WITH 4X4 AND GAUZE GIVEN TO THE PATIENT.
--- NOTE | 2018-10-20 20:04 | NUR ---
PATIENT IS DISCHARGED TO HOME, ALL PERSONAL ITEMS TAKEN WITH THE PATIENT. HE LEFT UNIT PER WHEELCHAIR TO THE FRONT LOBBY IN STABLE CONDITION.
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
== END 2018-10-20 20:05 | disposition home or self-care (01) | DRG 374 ==
LOC: ER 17:52 → ERHOLD 10-15 00:46 → MED/SURG3 10-15 01:13
PROVIDERS: ADMIT Internal Medicine; ATTEND Internal Medicine
PROC: 0DBM8ZX Excision of Descending Colon, Via Natural or Artificial Opening Endoscopic, Diagnostic (ICD-10-PCS; 2018-10-18)
PROC: 0DBK8ZX Excision of Ascending Colon, Via Natural or Artificial Opening Endoscopic, Diagnostic (ICD-10-PCS; principal; 2018-10-18 14:11)
PROC: 0DBL8ZX Excision of Transverse Colon, Via Natural or Artificial Opening Endoscopic, Diagnostic (ICD-10-PCS; 2018-10-18 14:11)
PROC: 0DBN8ZX Excision of Sigmoid Colon, Via Natural or Artificial Opening Endoscopic, Diagnostic (ICD-10-PCS; 2018-10-18 14:11)
PROC: 0DBP8ZX Excision of Rectum, Via Natural or Artificial Opening Endoscopic, Diagnostic (ICD-10-PCS; 2018-10-18 14:11)
DX: C19 Malignant neoplasm of rectosigmoid junction (principal); J18.9 Pneumonia, unspecified organism; N17.9 Acute kidney failure, unspecified; C78.7 Secondary malignant neoplasm of liver and intrahepatic bile duct; E87.6 Hypokalemia; I10 Essential (primary) hypertension
CPT/HCPCS: 36415; 45378; 45380; 45384; 45385; 72197; 74177; 80048; 80053; 81001; 82550; 82553; 83690; 83735; 83880; 84100; 84484; 85025; 87040; 88305; 88331; 88342; 94640; 96361; 99284; J0360; J0456; J0696; J2001; J2250; J2370; J3010; J3480; J7040; J7050; Q9967